=== PATIENT | male | born 1995 | race Caucasian/White ===

== ENCOUNTER 2018-01-12 15:22 | Emergency (ER) | payer OTHER ==
[~2018-01-12] VITALS: Ht 172.7 cm; Wt 117.9 kg
[2018-01-12 15:27] VITALS: Ht 172.7 cm; Wt 117.9 kg
[2018-01-12 16:59] VITALS: BP 119/68
== END 2018-01-12 19:07 | disposition home or self-care (01) ==
LOC: ED 15:22
DX: M62.830 Muscle spasm of back (principal); F12.90 Cannabis use, unspecified, uncomplicated
CPT/HCPCS: J1885